=== PATIENT | female | born 1950 | race African-American/Black ===

== ENCOUNTER 2017-03-23 10:23 | Observation (INO) | payer BC, MEDICAID ==
[~2017-03-23] VITALS: Ht 154.9 cm; Wt 134.3 kg
[~2017-03-23 10:23] MED LIST: ALBUTEROL; EYE DROPS; FLOVENT; TYLENOL
[2017-03-23 11:13] LABS: BASOPHILS % 0.7 % (0.0-2.0); EOSINOPHILS % 5.8 % (0.0-5.0); HEMATOCRIT. 38.1 % (36.0-48.0); HEMOGLOBIN. 12.4 g/dL (12.0-16.0); LYMPHOCYTES % 39.1 % (20.0-50.0); MEAN CORPUSCULAR HEMOGLOBIN 28.5 pg (28.0-32.0); MEAN CORPUSCULAR VOLUME 87.9 fL (81.0-99.0); MEAN PLATELET VOLUME 10.2 fl (7.4-10.4); MONOCYTES % 10.5 % (2.0-8.0); NEUTROPHILS % 43.9 % (40.0-76.0); PLATELET 163 x1000/uL (130-400); RED BLOOD CELL COUNT 4.33 mill/uL (4.2-5.4); RED CELL DISTRIBUTION WIDTH 14.1 % (11.6-14.6)
[2017-03-23 11:21] LABS: PROTHROMBIN TIME 10.3 sec
[2017-03-23 11:30] LABS: CARBON DIOXIDE 32 mEq/L (21-32); CHLORIDE 108 mEq/L (98-107); TROPONIN I < 0.02 ng/mL (0.00-0.04)
[2017-03-23] MEDS ORDERED: HYDRALAZINE 20MG/ML VIAL IV ONE (13:00)
[2017-03-23] MEDS ORDERED: ACETAMINOPHEN 325MG TABLET PO PRN (13:45)
[2017-03-23] MEDS ORDERED: ONDANSETRON HCL 4MG/2ML VIAL IV PRN (13:45)
[2017-03-23] MEDS ORDERED: CLONIDINE 0.1MG TABLET PO PRN ×2 (13:45→14:15)
[2017-03-23] MEDS ORDERED: IPRATROPIUM/ALBUTEROL 0.5-3(2.5)MG/3ML NEB INH PRN (13:45)
[2017-03-23 15:00] VITALS: BP 124/76
[2017-03-23 15:58] VITALS: BP 124/76
[2017-03-23] MEDS: HYDROCODONE/ACETAMINOPHEN 5/325MG TABLET PO PRN ×2 (16:08→21:20)
[2017-03-23 17:51] LABS: CHLORIDE 107 mEq/L (98-107)
[2017-03-23 17:53] LABS: CARBON DIOXIDE 29 mEq/L (21-32)
[2017-03-23 18:00] LABS: CREATINE KINASE 75 IU/L (26-192); TROPONIN I < 0.02 ng/mL (0.00-0.04)
[2017-03-23 20:00] VITALS: BP 117/65
[2017-03-23] MEDS: ENOXAPARIN 30MG/0.3ML SYR SUBCUT SCH (21:10)
[2017-03-24] VITALS: BP 110/71
[2017-03-24 04:00] VITALS: BP_SYST 130; BP_SYST 133; BP_SYST 138; BP_DIAS 50; BP_DIAS 71; BP_DIAS 72
[2017-03-24 06:32] LABS: BASOPHILS % 0.6 % (0.0-2.0); EOSINOPHILS % 4.9 % (0.0-5.0); HEMATOCRIT. 38.6 % (36.0-48.0); HEMOGLOBIN. 12.7 g/dL (12.0-16.0); LYMPHOCYTES % 41.6 % (20.0-50.0); MEAN CORPUSCULAR HEMOGLOBIN 28.9 pg (28.0-32.0); MEAN CORPUSCULAR VOLUME 88.2 fL (81.0-99.0); MEAN PLATELET VOLUME 10.5 fl (7.4-10.4); NEUTROPHILS % 43.9 % (40.0-76.0); PLATELET 172 x1000/uL (130-400); RED BLOOD CELL COUNT 4.38 mill/uL (4.2-5.4); RED CELL DISTRIBUTION WIDTH 14.5 % (11.6-14.6)
[2017-03-24] MEDS: HYDROCODONE/ACETAMINOPHEN 5/325MG TABLET PO PRN ×2 (08:51→13:38)
[2017-03-24] MEDS: ASPIRIN 81MG EC TABLET PO SCH (08:51)
[2017-03-24] MEDS: ENOXAPARIN 30MG/0.3ML SYR SUBCUT SCH (08:52)
[2017-03-24 12:13] VITALS: BP_SYST 141; BP_SYST 153; BP_SYST 193; BP_DIAS 61; BP_DIAS 90; BP_DIAS 95
[2017-03-24] MEDS ORDERED: POTASSIUM CHLORIDE 10MEQ TABLET SR PO SCH (12:15)
[2017-03-24 16:00] VITALS: BP 112/62
[2017-03-24 20:00] VITALS: BP_SYST 115; BP_SYST 136; BP_SYST 161; BP_DIAS 54; BP_DIAS 78; BP_DIAS 79
[2017-03-24] MEDS ORDERED: ATORVASTATIN CALCIUM 20MG TABLET PO SCH (21:00)
[2017-03-24] MEDS: ENOXAPARIN 40MG/0.4ML SYR SUBCUT SCH (22:19)
[2017-03-25] VITALS: BP 109/61
[2017-03-25 04:00] VITALS: BP 109/61
[2017-03-25 08:00] VITALS: BP 123/90
[2017-03-25] MEDS: ENOXAPARIN 40MG/0.4ML SYR SUBCUT SCH (08:40)
[2017-03-25] MEDS: ASPIRIN 81MG EC TABLET PO SCH (08:40)
[2017-03-25] MEDS ORDERED: REGADENOSON 0.4 MG/5 ML IV ONE (10:15)
[2017-03-25 12:00] VITALS: BP 118/67
[2017-03-25 15:17] VITALS: BP 139/78
== END 2017-03-25 15:40 | disposition home or self-care (01) ==
LOC: ER 11:28 → 8WST 12:06 → INTOOBSV 12:06 → EDBEDREQ 12:09 → ENRESERV 13:11
PROVIDERS: ADMIT Internal Medicine; ATTEND Internal Medicine
DX: R55 Syncope and collapse (principal); E66.9 Obesity, unspecified; E78.5 Hyperlipidemia, unspecified; G89.29 Other chronic pain; R42 Dizziness and giddiness; H40.9 Unspecified glaucoma; I10 Essential (primary) hypertension; J45.909 Unspecified asthma, uncomplicated; K21.9 Gastro-esophageal reflux disease without esophagitis; M10.9 Gout, unspecified; M19.90 Unspecified osteoarthritis, unspecified site; W19.XXXA Unspecified fall, initial encounter; Z91.041 Radiographic dye allergy status
CPT/HCPCS: 36415; 70450; 71010; 78582; 80048; 80053; 80061; 82550; 83735; 83880; 84443; 84481; 84484; 85025; 85379; 85610; 93005; 93306; 93880; 93970; 96372; 99285; A9540; A9558; G0378; J0360; J1650

== ENCOUNTER 2023-12-15 07:01 | Emergency (ER) | payer BC, MEDICAID ==
[~2023-12-15] VITALS: Ht 165.1 cm; Wt 136.0 kg
[2023-12-15 07:08] VITALS: O2SAT 98
[2023-12-15 08:00] VITALS: BP 157/61; PULSE 67; RESP 18; TEMP 97.8
[2023-12-15] MEDS: MECLIZINE 25MG TABLET PO ONE (08:13)
[2023-12-15] MEDS ORDERED: MECL-299 MT (09:10)
== END 2023-12-15 09:58 | disposition home or self-care (01) ==
LOC: ER 07:01
DX: R42 Dizziness and giddiness (principal); J45.909 Unspecified asthma, uncomplicated; Z88.1 Allergy status to other antibiotic agents; Z90.710 Acquired absence of both cervix and uterus
CPT/HCPCS: 99283; J8597